=== PATIENT | female | born 1935 | race African-American/Black ===

== ENCOUNTER 2017-01-22 10:01 | Inpatient (IN) | payer MEDICARE, BC ==
--- NOTE | ~2017-01-22 | HP ---
History And Physical [place] [address] [facility] [place]. [address] NAME: TERESA RAMIREZ : 37 STATUS : ADM IN [facility]#: [id number] AGE: 81 ADM/REG DATE : 01/22/17 MR#: [id number] REPORT SERV DATE: 01/22/17 DICTATED BY: PIETRO LUO DATE: 01/22/17 REPORT STATUS : Draft TRANSCRIBED BY: MODL DATE: 01/22/17 DATE OF ADMISSION: 01/22/2017 Ms. 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 CVD PHYSICIAN: Pietro Luo M.D. HISTORY OF PRESENT ILLNESS: Ms. Ramirez is a 81-year-old female, who has had a presyncopal episode this morning while going into the shower. Retrospectively, she also remembers now feeling lightheaded about three months ago. She came to the emergency room and had a CTA for her possible pulmonary embolus and was found to have a density in the left atrium. Echocardiogram confirmed left atrial mass most consistent with myxoma. REVIEW OF SYSTEMS: Negative for chest pain, chest discomfort, neurological symptoms, palpitations, bleeding disorder, change in diet, change in weight. Rest is negative. PAST MEDICAL HISTORY: Significant for hypertension, longstanding; and arthritis. SOCIAL HISTORY: She is . She is retired from [place], [place]. She does not smoke. FAMILY HISTORY: Negative for coronary artery disease. PHYSICAL EXAMINATION: VITAL SIGNS: Blood pressure is 171/94, pulse is 128. GENERAL: She is currently resting comfortably. EYES: PERRLA. LUNGS: No labored use of accessory muscles. Without rales or wheezes. COR: PMI is not displaced. No thrills or heaves. Normal S1 and S2. No S3, murmur, click or rub. PULSES: Carotids without bruits. ABD: +BS, nontender. EXT: No cyanosis, clubbing or edema. SKIN: No petechiae. NEURO: Alert and oriented. Does not appear anxious or depressed. LABORATORY EVALUATION: Ultrasound shows no DVT. CTA shows no pulmonary embolus. It does show filling defect in the left atrium. Echocardiogram shows left atrial mass consistent with left atrial myxoma. ASSESSMENT: Left atrial myxoma. We will admit to hospital for coronary arteriogram tomorrow and possible surgical intervention. Dr. Brooks has been consulted. History And Physical [address] [address] NAME: TERESA RAMIREZ : 37 STATUS : ADM IN PAT#: [id number] AGE: 81 ADM/REG DATE : 01/22/17 MR#: [id number] REPORT SERV DATE: 01/22/17 DICTATED BY: PIETRO LUO DATE: 01/22/17 REPORT STATUS : Draft TRANSCRIBED BY: REBECCA DATE: 01/22/17 DC/REBECCA Pietro Luo M.D. / [id number] CC: Carlo Ceja M.D.
--- NOTE | ~2017-01-22 | CN ---
Consultation Report [facility] [address] [place]. [address] NAME: TERESA RAMIREZ : 39 STATUS : ADM IN [facility]#: [id number] AGE: 81 ADM/REG DATE : 01/22/17 MR#: [id number] REPORT SERV DATE: 01/25/17 DICTATED BY: DOUG SPEARS DATE: 01/25/17 REPORT STATUS : Draft TRANSCRIBED BY: REBECCA DATE: 01/25/17 CONSULTATION DATE OF CONSULTATION: 01/25/2017 REASON FOR CONSULTATION: Left atrial myxoma. HISTORY OF PRESENT ILLNESS: This is a pleasant 81-year-old female with a longstanding history of high blood pressure and arthritis, but otherwise healthy. She presented to [facility] Emergency Room after experiencing a syncopal episode without fall on the morning of 01/22/2017. She also reported some frequent episodes of lightheadedness prior to this, but no syncope. In the emergency room, her physical exam was fairly unremarkable, except for elevated blood pressure and pulse. She ended up having a CT angiogram to rule out pulmonary embolus and was found to have a density in the left atrium and underwent echocardiogram, which confirmed a left atrial mass, most consistent with myxoma. CT Surgery was consulted for evaluation of surgical resection. PAST MEDICAL HISTORY: Longstanding history of high blood pressure and arthritis. SOCIAL HISTORY: She is . She is retired. Lives in [place], [place]. No tobacco abuse, use of alcohol or illicit drugs. She has a son, who is grown and lives in [place], [place]. FAMILY HISTORY: Negative for coronary artery disease. ALLERGIES: NO KNOWN DRUG ALLERGIES. HOME MEDICATIONS: Amlodipine and atorvastatin 5/10 mg one tab p.o. daily, Citracal two tabs p.o. daily, vitamin D3 1000 units p.o. daily, Flexeril 10 mg p.o. three times a day as needed, Cozaar 100 mg p.o. daily, multivitamin tab one tab p.o. daily, powder one dose p.o. at bedtime, Ultram 50-100 mg p.o. q.4 hours as needed, and Evista 60 mg p.o. daily. REVIEW OF SYSTEMS: A 10-point review of systems was obtained and is negative other than HPI. PHYSICAL EXAMINATION: VITAL SIGNS: From today, temperature 98 degrees; heart rate 121, sinus tach; blood pressure 118/67; respiratory rate 18; O2 saturation 94% on room air. GENERAL: Pleasant female, in no acute distress. NEURO: Alert and oriented x3. Pupils exhibit PERRLA. No obvious neuro deficits. HEENT: Head, normocephalic and atraumatic. Sclerae clear. NECK: Supple. LUNGS: Clear to auscultation bilaterally with normal effort. Consultation Report [place] [id number] [facility] [place]. [address] NAME: TERESA RAMIREZ : 37 STATUS : ADM IN [facility]#: [id number] AGE: 81 ADM/REG DATE : 01/22/17 MR#: [id number] REPORT SERV DATE: 01/25/17 DICTATED BY: DOUG SPEARS DATE: 01/25/17 REPORT STATUS : Draft TRANSCRIBED BY: REBECCA DATE: 01/25/17 CARDIAC: S1 and S2. Tachycardic with no murmurs, rubs, or gallops. ABDOMEN: Soft, obese, nontender with active bowel sounds. EXTREMITIES: Free of cyanosis, clubbing, or edema. LABORATORY DATA: From 01/23: CBC, white blood cell count 6.6, hemoglobin 12.8, hematocrit 37.3, platelets 237. BMP from today, sodium 141, potassium 4.0, chloride 108, bicarbonate 24, BUN 15, creatinine 0.8, and glucose 90. ASSESSMENT AND PLAN: This is a pleasant 81-year-old female, who has been experiencing episodes of lightheadedness and had a syncopal episode without fall on the morning of 01/22/2017. She presented to the emergency room at [facility] for further evaluation and underwent a CT angiogram of her chest and was found to have a left atrial mass. Echocardiogram confirmed this left atrial mass was most likely a myxoma. The patient is currently doing okay. She reports some occasional lightheadedness. She is tachycardic, but not overtly symptomatic with this. Other vital signs are stable. Labs are within normal limits. Dr. Spears has been able to review the echocardiogram and CT scan. We do think the patient needs to undergo resection of this likely myxoma, we will schedule this for tomorrow morning at 0900 hours, and she will undergo a minimally invasive left atrial myxoma resection. Discussed this with the patient in regard to risks and benefits of surgery and anticipated recovery with her and her family, and she is agreeable to proceed. We would like to thank you for this consultation, and we look forward to taking care of . Teresa Ramirez. DICTATED BY: GHAZAL Morales/REBECCA Doug Spears MD / [id number] CC: Carlo Ceja M.D.
--- NOTE | ~2017-01-22 | OP ---
Record Of Operation [facility] [address] [place]. [address] NAME: MARLENI RAMIREZ : 37 STATUS : ADM IN PAT#: [id number] AGE: 81 ADM/REG DATE : 01/22/17 MR#: [id number] REPORT SERV DATE: 01/26/17 DICTATED BY: DOUG SPEARS DATE: 01/26/17 REPORT STATUS : Draft TRANSCRIBED BY: MODL DATE: 01/26/17 DATE OF PROCEDURE: 01/26/2017 ATTENDING PHYSICIAN: Dr. Doug Spears. ELEMENTARY SCHOOL READING TEACHER: Abhi Talamantes. ANESTHESIOLOGIST: Raheem Griffiths. REFERRING PHYSICIAN: Dr. Pietro Luo. PREOPERATIVE DIAGNOSIS: Symptomatic left atrial myxoma. POSTOPERATIVE DIAGNOSIS: Symptomatic left atrial myxoma. OPERATION PROCEDURE PERFORMED: 1. Right mini thoracotomy. 2. Left femoral arterial venous cannulation. 3. Excision of left atrial mass. 4. Cryoablation of mass scar area. COMPLICATIONS: None. POSTOPERATIVE CONDITION: To CVICU. TUBES AND DRAINS: A 24-Haitian Elio x2; one to the right pleural space and one to the pericardium, wires. INTRAOPERATIVE FINDINGS: Very mucoid appearing friable left atrial mass. The stalk was right at the inferior aspect of the left atrial incision, stalk was excised into the muscle and the area was cryo ablated. This was later closed with the left atrial closure. There was an extremely friable left atrial appendage which was up to the transverse sinus. This had to be ligated partially in order to control hemorrhage from the tip. On transesophageal echo, there was a mild MR. There was a 3 x 3 cm left atrial mass. There was a mildly hypertrophic septal bulge with no CHRISTOPHER and no evidence of LVOT outflow obstruction. INDICATIONS FOR PROCEDURE: Ms. Ramirez is a 81-year-old, who presented with symptoms of fatigue and weakness, lightheadedness, underwent exhaustive workup, was found to have a 3 x 3 cm left atrial mass which was extending through the mitral valve at times. She underwent cardiac catheterization, was referred for excision. Risks, benefits, and alternatives were discussed with the patient including but not limited to, bleeding, infection, stroke, , heart attack, need for future operations. All questions were answered. DETAILS OF PROCEDURE: The patient was brought to the operating room, placed supine on the operating room table. After satisfactory induction of general endotracheal anesthesia with a double-lumen ET tube, she was placed in the modified left lateral decubitus position. She Record Of Operation [place] [id number] [place] [address] NAME: MARLENI RAMIREZ : 37 STATUS : ADM IN PAT#: [id number] AGE: 81 ADM/REG DATE : 01/22/17 MR#: [id number] REPORT SERV DATE: 01/26/17 DICTATED BY: DOUG SPEARS DATE: 01/26/17 REPORT STATUS : Draft TRANSCRIBED BY: REBECCA DATE: 01/26/17 was basically wedged with the wedge under her right side, elevating over the right hemithorax. Right arm was left at her side, rest of the body was supine. She was prepped and draped in the usual sterile fashion. A 6 cm mini thoracotomy was performed in the inframammary crease. Skin and subcutaneous tissues were divided. The latissimus was divided. The chest wall was encountered. The chest was entered in the 4th intercostal space. Skin protector was placed. Pericardial stay sutures were placed after dropping , pericardium was opened inferiorly and superiorly approximately 4 cm anterior to the phrenic nerve. The skin incision was made in the right femoral crease. This was deepened down to the subcutaneous tissues just below the inguinal ligament. The femoral sheath was entered in the right femoral artery and right femoral vein were encountered and these were dissected out. Systemic heparinization was achieved. After 3 minutes, pursestrings were placed on the anterior surface of both the artery and the vein and using modified Seldinger technique with visualization of the guidewires by anesthesia on echo, the guidewires cannulation was achieved. A 17-Haitian cannula was placed in the right femoral artery and 23, 25-Haitian cannula was placed in the right femoral vein. These were hooked to the appropriate size of the bypass circuit after documentation of adequate ACT. The cardiopulmonary bypass was initiated. The antegrade root vent cardioplegia tack was placed and cross-clamp was brought in through the stab incision. Garry crossclamp was used to cross clamp the aorta and 1500 mL of fpc cardioplegia was administered. The heart was arrested. The left atriotomy was performed and extended after developing Sondergaard's groove. The atrial mass was encountered immediately, it was extremely friable, was able to be removed, unfortunately piecemeal. All portions were recovered. The stalk was excised through the endocardium into the muscle of the heart. Given the area of the excision, a cryoprobe was brought in and the area was cryo ablated for 2 minutes x2 at minus 60 degrees. The Ro was then placed across the valve to act as a vent. Left atriotomy was then closed using 2 layers of running 3-0 [place]-Jc. The de-airing maneuvers were performed. The cross-clamp was removed. Ventricular pacing wires were placed prior to removal of the cross clamp. After removal of the cross clamp, the patient returned to normal sinus rhythm, was able to be weaned from cardiopulmonary bypass without incident. Prior to weaning, the vent was removed and the suture line was completed in the left atriotomy and the antegrade root vent cardioplegia tack was removed and the pursestring was tied down. After protamine was administered, the patient was decannulated. The pursestring was tied down on the vein and the right femoral artery was repaired with a double layer running 6-0 Prolene. There was excellent Doppler signal in the distal artery and there was an excellent pulse in the distal artery. Groin incision was closed with multiple layers of Vicryl. There appeared to be some bleeding from under the aorta. The aorta was lifted and the left atrial appendage which was sitting in the transverse sinus had a small punctate area of bleeding from the tip. This was attempted to be managed with multiple 4-0 pledgeted sutures; however, the appendage kept tearing. An Endoloop was then placed around the appendage and cinched down. This effectively stopped the bleeding. A 4-0 Prolene was then used to oversew the atrial appendage after ensuring that other hemostasis was appropriate. Two 24-Haitian Elio drains were introduced. The pacing wire was exteriorized. Hemostasis was obtained. Chest wall was then closed. Two #2 Vicryls were used for pericostals. The latissimus pectoral layer was reapproximated using a running #1 StrataFix and subcutaneous tissues closed using running #1 StrataFix. Skin closed with 2-0 Quill. All stab incisions were closed with 3-0 Vicryl and Dermabond. Dermabond was applied to the incision. The patient had her ET tube exchanged for a single-lumen ET tube and then was taken to the CVICU Record Of Operation [address] [address] NAME: MARLENI RAMIREZ : 37 STATUS : ADM IN PAT#: [id number] AGE: 81 ADM/REG DATE : 01/22/17 MR#: [id number] REPORT SERV DATE: 01/26/17 DICTATED BY: DOUG SPEARS DATE: 01/26/17 REPORT STATUS : Draft TRANSCRIBED BY: REBECCA DATE: 01/26/17 in critical, stable condition. [facility]/REBECCA Doug Spears MD / [id number] CC: Carlo Ceja M.D.
--- NOTE | ~2017-01-22 | DS ---
Discharge Summary [facility] [address] [facility] [place]. [address] NAME: MARLENI RAMIREZ : 39 STATUS : DIS IN PAT#: [id number] AGE: 81 ADM/REG DATE : 01/22/17 MR#: [id number] REPORT SERV DATE: 02/09/17 DICTATED BY: PIETRO LUO DATE: 02/09/17 REPORT STATUS : Draft TRANSCRIBED BY: MODChad DATE: 02/09/17 Data Collection from hospitalization DISCHARGE DIAGNOSES: 1. Atrial myxoma. 2. Hypertension. 3. Hyperlipidemia. 4. Arthritis. CONSULTATIONS: Doug Larson MD PROCEDURES PERFORMED: 1. Cardiac catheterization on 01/23/2017. 2. Right mini thoracotomy, left femoral arterial venous cannulation, excision of left atrial mass, and cryoablation of mass scar area on 01/26/2017. 3. CTA of the chest on 01/22/2017. 4. Venous Doppler ultrasound of the right lower extremity on 01/22/2017. PATHOLOGY: Heart, left atrium "mass" excision - myxoma. MEDICATIONS: Caduet one tablet daily, Citracal plus vitamin D two tablets daily, vitamin D3 1000 units daily, Flexeril 10 mg three times a day as needed, Cozaar 100 mg daily, Medrol one package as instructed for six days, Ocuvite one tablet daily, Metamucil powder one dose at bedtime, Evista 60 mg daily, and Ultram 50-100 mg every four hours as needed. CONDITION AT DISCHARGE: Stable. DISPOSITION: The patient was discharged home on a low-cholesterol, low-sodium, 1800-calorie cardiac/diabetic diet with activities as instructed. She would follow up with Dr. Doug Larson on 03/03/2017 and would follow up with Dr. Pietro Luo four months following discharge. HOSPITAL COURSE: This is a 81-year-old female who presented to the emergency room for dyspnea and was found to have a left atrial myxoma. The patient had a presyncopal episode on the morning of this admission while going into the shower. Retrospectively, she also remembered feeling lightheaded about three months prior to this admission. She came to the emergency room and had a CTA for possible pulmonary embolus and was found to have a density in the left atrium. Echocardiogram confirmed left atrial mass most consistent with myxoma. She was admitted to the hospital for further evaluation and treatment. Upon admission, venous Doppler ultrasound of the right lower extremity showed no evidence of deep venous thrombosis. It was felt that she would need to undergo a coronary arteriogram and possible surgical intervention. The following day, she was taken to the cardiac vp lab where she underwent the above-mentioned procedure by Dr. Castillo Metz. She tolerated this well, and there were no complications. She remained stable over the next couple of days. She was seen by Dr. Doug Larson regarding the left atrial myxoma. The CTA which ruled out pulmonary embolus revealed density in the left atrium. Echocardiogram confirmed a left atrial mass, most consistent with myxoma. The patient was currently doing okay. She Discharge Summary [address] [place]. [address] NAME: MARLENI RAMIREZ : 39 STATUS : DIS IN PAT#: [id number] AGE: 81 ADM/REG DATE : 01/22/17 MR#: [id number] REPORT SERV DATE: 02/09/17 DICTATED BY: PIETRO LUO DATE: 02/09/17 REPORT STATUS : Draft TRANSCRIBED BY: REBECCA DATE: 02/09/17 did report some occasional lightheadedness. She was tachycardic, but not overtly symptomatic with this. Labs were within normal limits. It was felt that the patient would need to undergo resection of this likely myxoma, this would be scheduled for the following day. On 01/26/2017, she was taken to the operating room where she underwent the above-mentioned procedure. She tolerated this well, and there were no complications. On postop day #1, the patient did have some significant bleeding, coagulopathy was started. On 01/28/2017, her white blood cell count was 10.8. She was alert and cooperative. Her lungs were clear. She was up sitting in a chair and had no new complaints. She was on Vapotherm. She was eating well. Chest x-ray still showed some pulmonary congestion. She had good response to diuretics. She had no significant output from the drain. Cardene had been stopped. On 01/29/2017, she was doing well. She had no complaints. Blood pressure was controlled. She continued to progress. She was ambulatory. O2 was being weaned. Her chest tube was removed. We encouraged her to mobilize. Discharge planning was performed. On 01/31/2017, she was up and around. She was feeling good. She was in a sinus rhythm. Discharge instructions were given. Due to her improved and stable condition, she was discharged home with the above-stated instructions. Information collected by: Sharmin Pierre I submit the above information as my discharge summary. JAROCHO/REBECCA Pietro Luo M.D. / [id number] CC: Carlo Ceja M.D. Wilson M. Clements, MD
[2017-01-22 09:27] LABS: BASOPHILS 0.3 %; BASOPHILS ABSOLUTE 0.02 10/3/uL (0.0-0.16); EOSINOPHILS 2.5 %; EOSINOPHILS ABSOLUTE 0.16 10/3/uL (0.0-0.53); HEMATOCRIT 39.5 % (36.0-48.0); HEMOGLOBIN 13.3 g/dL (12.0-16.0); IMMATURE GRANULOCYTES 0.6 %; IMMATURE GRANULOCYTES ABSOLUTE 0.04 10/3/uL (0.0-0.11); LYMPHOCYTES 44.6 %; LYMPHOCYTES ABSOLUTE 2.88 10/3/uL (0.67-4.30); MEAN CORPUS HGB CONC 33.7 g/dL (32.0-36.0); MEAN CORPUSCULAR HEMOGLOB 27.1 pg (26.0-34.0); MEAN CORPUSCULAR VOLUME 80.6 fL (80-100); MEAN PLATELET VOLUME 8.7 fL (9.2-13.0); MONOCYTES 4.5 %; MONOCYTES ABSOLUTE 0.29 10/3/uL (0.21-1.20); NEUTROPHILS 47.5 %; NEUTROPHILS ABSOLUTE 3.07 10/3/uL (2.02-8.40); PLATELET COUNT 228 10/3/uL (150-400); RBC DISTRIBUTION WIDTH 15.7 % (12.0-16.0); WHITE BLOOD CELLS 6.5 10/3/uL (4.5-10.5)
[2017-01-22 09:28] LABS: MANUAL DIFF NO %
[2017-01-22 09:33] LABS: INTERNATIONAL NORMAL RATI 1.1 UNITS (-); PARTIAL THROMBO TIME 29.6 SEC (22.5-37.2); PROTIME (NOT ORD) 13.8 SEC (12.0-14.5)
[2017-01-22 09:52] LABS: BUN (BLOOD UREA NITROGEN) 18 MG/DL (6-23); CHLORIDE, SERUM 103 MMOL/L (96-112); CO2 (CARBON DIOXIDE) 29 MMOL/L (24-34); CREATININE 1.09 MG/DL (0.55-1.02); GFR AFRICAN AMERICAN 56 ML/MIN (>=60); GFR NON AFRICAN AMERICAN 48 ML/MIN (>=60); POTASSIUM, SERUM 3.5 MMOL/L (3.5-5.3); SODIUM, SERUM 142 MMOL/L (135-148)
[2017-01-22 09:53] LABS: CALCIUM, SERUM 9.7 MG/DL (8.5-10.4); CHEST PAIN PROFILE TAT 0 Hrs 32 Mins; GLUCOSE, SERUM 98 MG/DL (60-99); TROPONIN I < 0.02 NG/ML (<0.05)
[~2017-01-22 10:01] MED LIST: CADUET5 MG/10 MG PO; CITRACAL PO; COZAAR100 MG PO; EVISTA60 PO; METAMUCIL CAN7 OZ PO; OCUVITE PO; VITAMIN D31000 UNIT PO
[2017-01-22] MEDS ORDERED: MEDROLPAK4 PO (16:05)
[2017-01-22] MEDS ORDERED: FLEX PO (16:08)
[2017-01-22] MEDS ORDERED: ULTRAM50 PO (16:09)
[2017-01-23 05:13] LABS: CHLORIDE, SERUM 109 MMOL/L (96-112); CO2 (CARBON DIOXIDE) 28 MMOL/L (24-34); CREATININE 0.81 MG/DL (0.55-1.02); GFR AFRICAN AMERICAN 80 ML/MIN (>=60); GFR NON AFRICAN AMERICAN 69 ML/MIN (>=60); GLUCOSE, SERUM 91 MG/DL (60-99); POTASSIUM, SERUM 3.2 MMOL/L (3.5-5.3); SODIUM, SERUM 144 MMOL/L (135-148)
[2017-01-23 05:14] LABS: BUN (BLOOD UREA NITROGEN) 14 MG/DL (6-23); CALCIUM, SERUM 8.7 MG/DL (8.5-10.4)
[2017-01-23 05:34] LABS: BASOPHILS 0.3 %; BASOPHILS ABSOLUTE 0.02 10/3/uL (0.0-0.16); EOSINOPHILS 2.4 %; EOSINOPHILS ABSOLUTE 0.16 10/3/uL (0.0-0.53); HEMATOCRIT 37.3 % (36.0-48.0); HEMOGLOBIN 12.8 g/dL (12.0-16.0); IMMATURE GRANULOCYTES 0.2 %; IMMATURE GRANULOCYTES ABSOLUTE 0.01 10/3/uL (0.0-0.11); LYMPHOCYTES 45.3 %; LYMPHOCYTES ABSOLUTE 2.97 10/3/uL (0.67-4.30); MEAN CORPUS HGB CONC 34.3 g/dL (32.0-36.0); MEAN CORPUSCULAR HEMOGLOB 27.8 pg (26.0-34.0); MEAN CORPUSCULAR VOLUME 81.1 fL (80-100); MONOCYTES 6.1 %; NEUTROPHILS 45.7 %; NEUTROPHILS ABSOLUTE 2.99 10/3/uL (2.02-8.40); PLATELET COUNT 237 10/3/uL (150-400); RBC DISTRIBUTION WIDTH 15.7 % (12.0-16.0); WHITE BLOOD CELLS 6.6 10/3/uL (4.5-10.5)
[2017-01-23 05:37] LABS: MANUAL DIFF NO %
[2017-01-24 11:42] LABS: BUN (BLOOD UREA NITROGEN) 16 MG/DL (6-23); CALCIUM, SERUM 9.4 MG/DL (8.5-10.4); CHLORIDE, SERUM 108 MMOL/L (96-112); CO2 (CARBON DIOXIDE) 28 MMOL/L (24-34); GFR AFRICAN AMERICAN 70 ML/MIN (>=60); GFR NON AFRICAN AMERICAN 61 ML/MIN (>=60); GLUCOSE, SERUM 90 MG/DL (60-99); POTASSIUM, SERUM 3.8 MMOL/L (3.5-5.3); SODIUM, SERUM 143 MMOL/L (135-148)
[2017-01-25 06:19] LABS: BUN (BLOOD UREA NITROGEN) 15 MG/DL (6-23); CHLORIDE, SERUM 108 MMOL/L (96-112); CO2 (CARBON DIOXIDE) 24 MMOL/L (24-34); CREATININE 0.87 MG/DL (0.55-1.02); GFR AFRICAN AMERICAN 73 ML/MIN (>=60); GFR NON AFRICAN AMERICAN 63 ML/MIN (>=60); GLUCOSE, SERUM 90 MG/DL (60-99); SODIUM, SERUM 141 MMOL/L (135-148)
[2017-01-26 03:54] LABS: BASOPHILS 0.2 %; BASOPHILS ABSOLUTE 0.01 10/3/uL (0.0-0.16); EOSINOPHILS 0.2 %; EOSINOPHILS ABSOLUTE 0.01 10/3/uL (0.0-0.53); HEMATOCRIT 37.6 % (36.0-48.0); HEMOGLOBIN 12.9 g/dL (12.0-16.0); IMMATURE GRANULOCYTES 0.2 %; IMMATURE GRANULOCYTES ABSOLUTE 0.01 10/3/uL (0.0-0.11); LYMPHOCYTES 20.7 %; LYMPHOCYTES ABSOLUTE 1.22 10/3/uL (0.67-4.30); MEAN CORPUS HGB CONC 34.3 g/dL (32.0-36.0); MEAN CORPUSCULAR VOLUME 78.8 fL (80-100); MEAN PLATELET VOLUME 8.9 fL (9.2-13.0); MONOCYTES ABSOLUTE 0.53 10/3/uL (0.21-1.20); NEUTROPHILS 69.7 %; NEUTROPHILS ABSOLUTE 4.12 10/3/uL (2.02-8.40); PLATELET COUNT 182 10/3/uL (150-400); RBC DISTRIBUTION WIDTH 15.6 % (12.0-16.0); RED CELL COUNT 4.77 10/6/uL (4.0-5.6); WHITE BLOOD CELLS 5.9 10/3/uL (4.5-10.5)
[2017-01-26 03:56] LABS: MANUAL DIFF NO %
[2017-01-26 04:08] LABS: CALCIUM, SERUM 8.8 MG/DL (8.5-10.4); CHLORIDE, SERUM 104 MMOL/L (96-112); CO2 (CARBON DIOXIDE) 23 MMOL/L (24-34); CREATININE 1.15 MG/DL (0.55-1.02); GFR AFRICAN AMERICAN 52 ML/MIN (>=60); GFR NON AFRICAN AMERICAN 45 ML/MIN (>=60); GLUCOSE, SERUM 89 MG/DL (60-99); SODIUM, SERUM 139 MMOL/L (135-148)
[2017-01-26 04:10] LABS: BUN (BLOOD UREA NITROGEN) 20 MG/DL (6-23)
[2017-01-26 14:15] LABS: BE (BASE EXCESS) -3.9 MEQ/L (0 +/- 2.5); CARBOXYHEMOGLOBIN 0.3 % (0-3); HCO3 (ACTUAL BICARBONATE) 19.8 MEQ/L (23-27); HEMOBLOGIN CONTENT 12.1 G/DL (12-16); INSTRUMENT SERIAL # 11843; METHEMOGLOBIN 0.6 % (0-3); MODE SIMV; O2 CONTENT 17.6 VOL% (18-24); PCO2 (CO2 TENSION) 32 MMHG (35-45); PO2 (O2 TENSION) 377 MMHG (79-93); SAMPLE Arterial; TIDAL VOLUME 700 ML; pH 7.41 (7.37-7.43)
[2017-01-26 14:45] LABS: HEMATOCRIT 32.1 % (36.0-48.0); HEMOGLOBIN 11.1 g/dL (12.0-16.0); MANUAL DIFF YES %; MEAN CORPUS HGB CONC 34.6 g/dL (32.0-36.0); MEAN CORPUSCULAR HEMOGLOB 27.4 pg (26.0-34.0); MEAN CORPUSCULAR VOLUME 79.3 fL (80-100); MEAN PLATELET VOLUME 8.8 fL (9.2-13.0); PLATELET COUNT 102 10/3/uL (150-400); RBC DISTRIBUTION WIDTH 15.7 % (12.0-16.0); RED CELL COUNT 4.05 10/6/uL (4.0-5.6); WHITE BLOOD CELLS 9.5 10/3/uL (4.5-10.5)
[2017-01-26 14:53] LABS: INTERNATIONAL NORMAL RATI 1.7 UNITS (-); PARTIAL THROMBO TIME 46.7 SEC (22.5-37.2)
[2017-01-26 14:54] LABS: BUN (BLOOD UREA NITROGEN) 19 MG/DL (6-23); CALCIUM, SERUM 9.3 MG/DL (8.5-10.4); CHLORIDE, SERUM 107 MMOL/L (96-112); CO2 (CARBON DIOXIDE) 25 MMOL/L (24-34); CREATININE 1.06 MG/DL (0.55-1.02); GFR AFRICAN AMERICAN 58 ML/MIN (>=60); GFR NON AFRICAN AMERICAN 50 ML/MIN (>=60); GLUCOSE, SERUM 105 MG/DL (60-99); POTASSIUM, SERUM 3.7 MMOL/L (3.5-5.3); PROTIME (NOT ORD) 20.1 SEC (12.0-14.5); SODIUM, SERUM 141 MMOL/L (135-148)
[2017-01-26 15:00] LABS: FIBRINOGEN 238 MG/DL (230-462)
[2017-01-26 15:24] LABS: BAND NEUTROPHILS 13 %; BASOPHILS 1 %; LYMPHOCYTES 9 %; LYMPHOCYTES ABSOLUTE (CALC) 0.86 10/3/uL (0.67-4.30); MONOCYTES 4 %; MONOCYTES ABSOLUTE (CALC) 0.38 10/3/uL (0.21-1.20); NEUTROPHILS ABSOLUTE (CALC) 8.17 10/3/uL (2.02-8.40); PLATELET ESTIMATE SLT DEC (ADEQUATE); SEGMENTED NEUTROPHIL (0) 73 %; TOTAL NUCLEATED CELLS 100
[2017-01-26 15:25] LABS: RBC MORPHOLOGY NORM (NORMAL)
[2017-01-26 18:46] LABS: BE (BASE EXCESS) -2.8 MEQ/L (0 +/- 2.5); CARBOXYHEMOGLOBIN 0.3 % (0-3); DEVICE NC; HCO3 (ACTUAL BICARBONATE) 21.3 MEQ/L (23-27); HEMOBLOGIN CONTENT 9.5 G/DL (12-16); INSTRUMENT SERIAL # 11843; METHEMOGLOBIN 0.8 % (0-3); O2 CONTENT 12.4 VOL% (18-24); PCO2 (CO2 TENSION) 34 MMHG (35-45); PO2 (O2 TENSION) 79 MMHG (79-93); SAMPLE Arterial; pH 7.41 (7.37-7.43)
[2017-01-26 20:53] LABS: HEMATOCRIT 25.1 % (36.0-48.0); HEMOGLOBIN 8.7 g/dL (12.0-16.0)
[2017-01-26 20:58] LABS: POTASSIUM, SERUM 3.9 MMOL/L (3.5-5.3)
[2017-01-27 00:35] LABS: HEMATOCRIT 23.1 % (36.0-48.0); HEMOGLOBIN 7.8 g/dL (12.0-16.0); PLATELET COUNT 85 10/3/uL (150-400)
[2017-01-27 00:41] LABS: PARTIAL THROMBO TIME 79.6 SEC (22.5-37.2)
[2017-01-27 01:19] LABS: FIBRINOGEN 181 MG/DL (230-462); INTERNATIONAL NORMAL RATI 1.6 UNITS (-); PROTIME (NOT ORD) 19.2 SEC (12.0-14.5)
[2017-01-27 02:55] LABS: MEAN CORPUS HGB CONC 34.5 g/dL (32.0-36.0); MEAN CORPUSCULAR HEMOGLOB 28.2 pg (26.0-34.0); MEAN PLATELET VOLUME 7.9 fL (9.2-13.0); PLATELET COUNT 90 10/3/uL (150-400); RBC DISTRIBUTION WIDTH 15.3 % (12.0-16.0)
[2017-01-27 03:01] LABS: HEMATOCRIT 17.4 % (36.0-48.0); MANUAL DIFF YES %; MEAN CORPUSCULAR VOLUME 81.7 fL (80-100); RED CELL COUNT 2.13 10/6/uL (4.0-5.6); WHITE BLOOD CELLS 5.3 10/3/uL (4.5-10.5)
[2017-01-27 03:05] LABS: INTERNATIONAL NORMAL RATI 1.5 UNITS (-); PROTIME (NOT ORD) 17.5 SEC (12.0-14.5)
[2017-01-27 03:16] LABS: BAND NEUTROPHILS 6 %; LYMPHOCYTES 6 %; LYMPHOCYTES ABSOLUTE (CALC) 0.32 10/3/uL (0.67-4.30); NEUTROPHILS ABSOLUTE (CALC) 4.98 10/3/uL (2.02-8.40); PLATELET ESTIMATE DEC (ADEQUATE); RBC MORPHOLOGY NORM (NORMAL); SEGMENTED NEUTROPHIL (0) 88 %; TOTAL NUCLEATED CELLS 100
[2017-01-27 03:17] LABS: CHLORIDE, SERUM 110 MMOL/L (96-112); CO2 (CARBON DIOXIDE) 24 MMOL/L (24-34); CREATININE 0.92 MG/DL (0.55-1.02); GFR AFRICAN AMERICAN 69 ML/MIN (>=60); GFR NON AFRICAN AMERICAN 59 ML/MIN (>=60); GLUCOSE, SERUM 118 MG/DL (60-99); POTASSIUM, SERUM 3.5 MMOL/L (3.5-5.3); SODIUM, SERUM 146 MMOL/L (135-148)
[2017-01-27 03:18] LABS: BUN (BLOOD UREA NITROGEN) 23 MG/DL (6-23)
[2017-01-27 03:22] LABS: PARTIAL THROMBO TIME 38.2 SEC (22.5-37.2)
[2017-01-27 03:33] LABS: FIBRINOGEN 242 MG/DL (230-462)
[2017-01-27 04:58] LABS: HEMATOCRIT 26.6 % (36.0-48.0); HEMOGLOBIN 9.5 g/dL (12.0-16.0)
[2017-01-27 08:10] LABS: POTASSIUM, SERUM 3.5 MMOL/L (3.5-5.3)
[2017-01-27 08:14] LABS: HEMOGLOBIN 9.7 g/dL (12.0-16.0); PLATELET COUNT 233 10/3/uL (150-400)
[2017-01-27 08:54] LABS: PARTIAL THROMBO TIME 31.4 SEC (22.5-37.2)
[2017-01-27 09:07] LABS: INTERNATIONAL NORMAL RATI < 0.7 UNITS (-)
[2017-01-27 09:08] LABS: PROTIME (NOT ORD) < 10.0 SEC (12.0-14.5)
[2017-01-27 13:44] LABS: POTASSIUM, SERUM 4.1 MMOL/L (3.5-5.3)
[2017-01-27 17:12] LABS: HEMATOCRIT 28.8 % (36.0-48.0); HEMOGLOBIN 10.1 g/dL (12.0-16.0)
[2017-01-27 17:18] LABS: POTASSIUM, SERUM 4.1 MMOL/L (3.5-5.3)
[2017-01-28 03:15] LABS: BASOPHILS 0 %; EOSINOPHILS 0 %; HEMATOCRIT 29.9 % (36.0-48.0); HEMOGLOBIN 10.4 g/dL (12.0-16.0); IMMATURE GRANULOCYTES 0.4 %; IMMATURE GRANULOCYTES ABSOLUTE 0.04 10/3/uL (0.0-0.11); LYMPHOCYTES 8.7 %; LYMPHOCYTES ABSOLUTE 0.94 10/3/uL (0.67-4.30); MANUAL DIFF NO %; MEAN CORPUS HGB CONC 34.8 g/dL (32.0-36.0); MEAN CORPUSCULAR HEMOGLOB 29.1 pg (26.0-34.0); MEAN CORPUSCULAR VOLUME 83.8 fL (80-100); MEAN PLATELET VOLUME 9.3 fL (9.2-13.0); MONOCYTES 4.8 %; MONOCYTES ABSOLUTE 0.52 10/3/uL (0.21-1.20); NEUTROPHILS 86.1 %; NEUTROPHILS ABSOLUTE 9.25 10/3/uL (2.02-8.40); PLATELET COUNT 213 10/3/uL (150-400); RBC DISTRIBUTION WIDTH 14.9 % (12.0-16.0); RED CELL COUNT 3.57 10/6/uL (4.0-5.6); WHITE BLOOD CELLS 10.8 10/3/uL (4.5-10.5)
[2017-01-28 03:21] LABS: PARTIAL THROMBO TIME 32.6 SEC (22.5-37.2)
[2017-01-28 03:23] LABS: PROTIME (NOT ORD) 13.3 SEC (12.0-14.5)
[2017-01-28 03:27] LABS: CHLORIDE, SERUM 102 MMOL/L (96-112); CO2 (CARBON DIOXIDE) 28 MMOL/L (24-34); CREATININE 0.86 MG/DL (0.55-1.02); GFR AFRICAN AMERICAN 74 ML/MIN (>=60); GFR NON AFRICAN AMERICAN 64 ML/MIN (>=60); GLUCOSE, SERUM 119 MG/DL (60-99); POTASSIUM, SERUM 3.5 MMOL/L (3.5-5.3); SODIUM, SERUM 143 MMOL/L (135-148)
[2017-01-28 03:28] LABS: BUN (BLOOD UREA NITROGEN) 27 MG/DL (6-23); CALCIUM, SERUM 9.1 MG/DL (8.5-10.4)
[2017-01-28 14:17] LABS: BUN (BLOOD UREA NITROGEN) 26 MG/DL (6-23); CALCIUM, SERUM 9.1 MG/DL (8.5-10.4); CHLORIDE, SERUM 102 MMOL/L (96-112); CO2 (CARBON DIOXIDE) 27 MMOL/L (24-34); CREATININE 0.93 MG/DL (0.55-1.02); GFR AFRICAN AMERICAN 68 ML/MIN (>=60); GFR NON AFRICAN AMERICAN 58 ML/MIN (>=60); GLUCOSE, SERUM 141 MG/DL (60-99); SODIUM, SERUM 138 MMOL/L (135-148)
[2017-01-28 16:00] LABS: BASOPHILS 0 %; EOSINOPHILS 0 %; HEMATOCRIT 30.5 % (36.0-48.0); HEMOGLOBIN 10.5 g/dL (12.0-16.0); IMMATURE GRANULOCYTES 0.2 %; IMMATURE GRANULOCYTES ABSOLUTE 0.02 10/3/uL (0.0-0.11); LYMPHOCYTES 13.3 %; LYMPHOCYTES ABSOLUTE 1.35 10/3/uL (0.67-4.30); MEAN CORPUS HGB CONC 34.4 g/dL (32.0-36.0); MEAN CORPUSCULAR HEMOGLOB 28.7 pg (26.0-34.0); MEAN CORPUSCULAR VOLUME 83.3 fL (80-100); MEAN PLATELET VOLUME 9.9 fL (9.2-13.0); MONOCYTES 5.4 %; MONOCYTES ABSOLUTE 0.55 10/3/uL (0.21-1.20); NEUTROPHILS 81.1 %; NEUTROPHILS ABSOLUTE 8.26 10/3/uL (2.02-8.40); PLATELET COUNT 212 10/3/uL (150-400); RBC DISTRIBUTION WIDTH 15.4 % (12.0-16.0); RED CELL COUNT 3.66 10/6/uL (4.0-5.6); WHITE BLOOD CELLS 10.2 10/3/uL (4.5-10.5)
[2017-01-28 16:01] LABS: MANUAL DIFF NO %
[2017-01-29 03:34] LABS: BASOPHILS 0.1 %; BASOPHILS ABSOLUTE 0.01 10/3/uL (0.0-0.16); EOSINOPHILS 0 %; HEMATOCRIT 28.8 % (36.0-48.0); HEMOGLOBIN 9.7 g/dL (12.0-16.0); IMMATURE GRANULOCYTES 0.1 %; IMMATURE GRANULOCYTES ABSOLUTE 0.01 10/3/uL (0.0-0.11); LYMPHOCYTES ABSOLUTE 1.11 10/3/uL (0.67-4.30); MEAN CORPUS HGB CONC 33.7 g/dL (32.0-36.0); MEAN CORPUSCULAR HEMOGLOB 28.2 pg (26.0-34.0); MEAN CORPUSCULAR VOLUME 83.7 fL (80-100); MEAN PLATELET VOLUME 9.4 fL (9.2-13.0); MONOCYTES 3.7 %; MONOCYTES ABSOLUTE 0.32 10/3/uL (0.21-1.20); NEUTROPHILS 83.1 %; NEUTROPHILS ABSOLUTE 7.11 10/3/uL (2.02-8.40); PLATELET COUNT 187 10/3/uL (150-400); RBC DISTRIBUTION WIDTH 15.4 % (12.0-16.0); RED CELL COUNT 3.44 10/6/uL (4.0-5.6); WHITE BLOOD CELLS 8.6 10/3/uL (4.5-10.5)
[2017-01-29 03:35] LABS: MANUAL DIFF NO %
[2017-01-29 03:53] LABS: BUN (BLOOD UREA NITROGEN) 27 MG/DL (6-23); CALCIUM, SERUM 8.6 MG/DL (8.5-10.4); CHLORIDE, SERUM 101 MMOL/L (96-112); CO2 (CARBON DIOXIDE) 28 MMOL/L (24-34); CREATININE 0.81 MG/DL (0.55-1.02); GFR AFRICAN AMERICAN 80 ML/MIN (>=60); GFR NON AFRICAN AMERICAN 69 ML/MIN (>=60); POTASSIUM, SERUM 3.6 MMOL/L (3.5-5.3); SODIUM, SERUM 140 MMOL/L (135-148)
[2017-01-29 03:54] LABS: GLUCOSE, SERUM 105 MG/DL (60-99)
[2017-01-30 04:16] LABS: BASOPHILS 0.1 %; BASOPHILS ABSOLUTE 0.01 10/3/uL (0.0-0.16); EOSINOPHILS 0.1 %; EOSINOPHILS ABSOLUTE 0.01 10/3/uL (0.0-0.53); HEMATOCRIT 31.1 % (36.0-48.0); HEMOGLOBIN 10.6 g/dL (12.0-16.0); IMMATURE GRANULOCYTES 0.3 %; IMMATURE GRANULOCYTES ABSOLUTE 0.02 10/3/uL (0.0-0.11); LYMPHOCYTES 19.5 %; LYMPHOCYTES ABSOLUTE 1.34 10/3/uL (0.67-4.30); MEAN CORPUS HGB CONC 34.1 g/dL (32.0-36.0); MEAN CORPUSCULAR HEMOGLOB 28.5 pg (26.0-34.0); MEAN CORPUSCULAR VOLUME 83.6 fL (80-100); MEAN PLATELET VOLUME 9.5 fL (9.2-13.0); MONOCYTES 5.1 %; MONOCYTES ABSOLUTE 0.35 10/3/uL (0.21-1.20); NEUTROPHILS 74.9 %; NEUTROPHILS ABSOLUTE 5.13 10/3/uL (2.02-8.40); PLATELET COUNT 194 10/3/uL (150-400); RED CELL COUNT 3.72 10/6/uL (4.0-5.6); WHITE BLOOD CELLS 6.9 10/3/uL (4.5-10.5)
[2017-01-30 04:25] LABS: MANUAL DIFF NO %
[2017-01-30 04:26] LABS: CALCIUM, SERUM 8.6 MG/DL (8.5-10.4); CHLORIDE, SERUM 105 MMOL/L (96-112); CO2 (CARBON DIOXIDE) 25 MMOL/L (24-34); CREATININE 0.79 MG/DL (0.55-1.02); GFR AFRICAN AMERICAN 83 ML/MIN (>=60); GFR NON AFRICAN AMERICAN 71 ML/MIN (>=60); GLUCOSE, SERUM 92 MG/DL (60-99); POTASSIUM, SERUM 3.9 MMOL/L (3.5-5.3); SODIUM, SERUM 140 MMOL/L (135-148)
[2017-01-30 04:27] LABS: BUN (BLOOD UREA NITROGEN) 22 MG/DL (6-23)
[2017-01-31 08:43] LABS: CALCIUM, SERUM 8.2 MG/DL (8.5-10.4); CHLORIDE, SERUM 105 MMOL/L (96-112); CO2 (CARBON DIOXIDE) 27 MMOL/L (24-34); CREATININE 0.86 MG/DL (0.55-1.02); GFR AFRICAN AMERICAN 74 ML/MIN (>=60); GFR NON AFRICAN AMERICAN 64 ML/MIN (>=60); GLUCOSE, SERUM 86 MG/DL (60-99); POTASSIUM, SERUM 3.8 MMOL/L (3.5-5.3); SODIUM, SERUM 142 MMOL/L (135-148)
[2017-01-31 08:45] LABS: BUN (BLOOD UREA NITROGEN) 15 MG/DL (6-23)
[2017-04-09] MEDS ORDERED: METAMUCIL CAN7 OZ PO (14:39)
[2017-04-09] MEDS ORDERED: OCUVITE PO (14:40)
[2017-04-09] MEDS ORDERED: CITRACAL PO (14:40)
[2017-04-09] MEDS ORDERED: VITAMIN D31000 UNIT PO (14:40)
[2017-04-09] MEDS ORDERED: NEUR300 PO (14:42)
== END 2017-01-31 11:07 | disposition home or self-care (01) | DRG 229 ==
LOC: ER 10:01 → 7NO 16:15 → SDC/OF 01-26 12:37 → CVICU 01-26 12:58 → 5NO 01-29 12:43
PROVIDERS: Emergency Medicine; Internal Medicine Cardiovascular Disease; Nurse Practitioner Family; Thoracic Surgery (Cardiothoracic Vascular Surgery)
PROC: 4A023N7 Measurement of Cardiac Sampling and Pressure, Left Heart, Percutaneous Approach (ICD-10-PCS; 2017-01-23)
PROC: B2111ZZ Fluoroscopy of Multiple Coronary Arteries using Low Osmolar Contrast (ICD-10-PCS; 2017-01-23)
PROC: 02B50ZZ Excision of Atrial Septum, Open Approach (ICD-10-PCS; 2017-01-26)
PROC: 5A1221Z Performance of Cardiac Output, Continuous (ICD-10-PCS; 2017-01-26)
PROC: 02B70ZK Excision of Left Atrial Appendage, Open Approach (ICD-10-PCS; principal; 2017-01-26 08:45)
PROC: 30233N1 Transfusion of Nonautologous Red Blood Cells into Peripheral Vein, Percutaneous Approach (ICD-10-PCS; 2017-01-27)
PROC: 30233K1 Transfusion of Nonautologous Frozen Plasma into Peripheral Vein, Percutaneous Approach (ICD-10-PCS; 2017-01-27)
PROC: 30233R1 Transfusion of Nonautologous Platelets into Peripheral Vein, Percutaneous Approach (ICD-10-PCS; 2017-01-27)
DX: D15.1 Benign neoplasm of heart (principal); I12.9 Hypertensive chronic kidney disease with stage 1 through stage 4 chronic kidney disease, or unspecified chronic kidney disease; E78.5 Hyperlipidemia, unspecified; N18.2 Chronic kidney disease, stage 2 (mild)
CPT/HCPCS: 36415; 71010; 71020; 71275; 80048; 82330; 82803; 82805; 82947; 82962; 83735; 84132; 84295; 84443; 84484; 85014; 85018; 85025; 85049; 85347; 85384; 85610; 85730; 86850; 86900; 86901; 86920; 86965; 87641; 88305; 93005; 93306; 93458; 93971; 94002; 94640; 94660; 94770; 99152; 99153; 99285; A9270-GY; C1751; C1760; C1769; C1894; C2618; J0690; J1644; J1940; J2150; J2250; J2370; J2597; J2720; J2795; J2930; J3010; J3370; J3475; J3480; J7189; P9012; P9016; P9035; P9045; P9047; P9059; Q9967

== ENCOUNTER 2017-04-16 08:28 | Day surgery (SDC) | payer MEDICARE, BC ==
[2017-04-10 11:12] LABS: HEMATOCRIT 33.2 % (36.0-48.0); HEMOGLOBIN 11.2 g/dL (12.0-16.0)
[2017-04-10 11:26] LABS: BUN (BLOOD UREA NITROGEN) 11 MG/DL (6-23); CALCIUM, SERUM 9.7 MG/DL (8.5-10.4); CHLORIDE, SERUM 110 MMOL/L (96-112); CO2 (CARBON DIOXIDE) 27 MMOL/L (24-34); CREATININE 0.98 MG/DL (0.55-1.02); GFR AFRICAN AMERICAN 64 ML/MIN (>=60); GFR NON AFRICAN AMERICAN 55 ML/MIN (>=60); POTASSIUM, SERUM 3.4 MMOL/L (3.5-5.3); SODIUM, SERUM 146 MMOL/L (135-148)
[2017-04-10 11:28] LABS: GLUCOSE, SERUM 164 MG/DL (60-99)
--- NOTE | ~2017-04-16 | OP ---
Record Of Operation [facility] [address] [place] [place]. [address] NAME: MARLENI RAMIREZ : 39 STATUS : [facility] PAT#: [id number] AGE: 81 ADM/REG DATE : 04/16/17 MR#: [id number] REPORT SERV DATE: 04/16/17 DICTATED BY: SKIP BOJORQUEZ DATE: 04/16/17 REPORT STATUS : Draft TRANSCRIBED BY: MODL DATE: 04/16/17 DATE OF PROCEDURE: 04/16/2017 PREOPERATIVE DIAGNOSES: Right-sided L2 through S1 disk herniation, foraminal stenosis, and lumbar radiculopathy. POSTOPERATIVE DIAGNOSES: Right-sided L2 through S1 disk herniation, foraminal stenosis, and lumbar radiculopathy. PROCEDURES: 1. Right-sided L2-3, L3-4, L4-5, and L5-S1 microdiscectomy. 2. Minimal access spine technology. 3. Operative microscope. 4. Intraoperative O-arm CT scan with computer navigation. 5. Decompression of the right L2-S1 nerve roots. SURGEON: Skip Bojorquez DO. ANESTHESIA: General. ESTIMATED BLOOD LOSS: 20 mL. COMPLICATIONS: None. INDICATIONS: The patient is a pleasant 81-year-old with intractable right leg pain, failed multiple attempts at conservative treatment. After discussion of the risks and benefits, and gait disturbance, the patient elected to proceed with surgical intervention. PROCEDURE IN DETAIL: I identified the patient in the holding area. Consent was obtained. Went to the operating room. Underwent general anesthesia with endotracheal intubation. Prepped and draped in the usual sterile fashion. Operative safety pause was performed, then we proceeded with surgery. The O-arm registration frame was placed in the iliac crest. O- arm was brought in for intraoperative CT scan. Computer registration materials were verified. Under computer guidance, a right longitudinal incision was made at L2 through S1 taken through the fascial layer. Tube dilators were used to minimally invasively dissect down to the L2-3 interspace on the right. Operative microscope was brought in. A julia was used to perform a laminotomy. Candice performed a foraminotomy. Disk was incised and multiple large pieces of sequestered partially calcified disk fragments were removed causing severe nerve compression. This was repeated again at the right-sided L3-4, L4-5, and L5-S1 nerve roots. Each of the nerves were significantly compressed and then I felt around each of the nerves with a [place] and a [place], and each of them were free of compression from L2 through S1 at the end of the case. Irrigation was performed. Hemostasis was achieved. There was a small bleb over the dura, but not a the actual complete tear with a leak at the L4-L5 level. This was covered with DuraSeal sealant as an extra precaution. 40 mg Depo- Medrol was injected over the nerve roots. Layered closure was performed. Sterile dressings were applied. The patient was awoken and extubated, and taken to the recovery room in Record Of Operation [address] [address] NAME: MARLENI RAMIREZ : 39 STATUS : [facility] PAT#: [id number] AGE: 81 ADM/REG DATE : 04/16/17 MR#: [id number] REPORT SERV DATE: 04/16/17 DICTATED BY: SKIP BOJORQUEZ DATE: 04/16/17 REPORT STATUS : Draft TRANSCRIBED BY: REBECCA DATE: 04/16/17 stable condition. OPERATIVE FINDINGS: Right L2 through S1 disk disease. Herniated disk and stenosis. PRITI/REBECCA Skip Bojorquez DO / [id number] CC: DO Kody Bojorquez M.D.
[~2017-04-16 08:28] MED LIST changes: +FLEX PO; +MEDROLPAK4 PO; +NEUR300 PO; +ULTRAM50 PO
== END 2017-04-16 16:25 | disposition home or self-care (01) ==
LOC: SDC 08:28
PROVIDERS: Orthopaedic Surgery
PROC: 01NB0ZZ Release Lumbar Nerve, Open Approach (ICD-10-PCS; 2017-04-16)
PROC: 0SB20ZZ Excision of Lumbar Vertebral Disc, Open Approach (ICD-10-PCS; principal; 2017-04-16 10:45)
DX: M51.17 Intervertebral disc disorders with radiculopathy, lumbosacral region (principal); M99.83 Other biomechanical lesions of lumbar region; I10 Essential (primary) hypertension; Z87.891 Personal history of nicotine dependence; Z98.890 Other specified postprocedural states; Z79.899 Other long term (current) drug therapy
CPT/HCPCS: 80048; 82962; 85014; 85018; 88304; 88311; 93005; J0690; J1030; J1170; J2370; J2405; J2710; J3010